=== PATIENT | male | born 1990 | race Asian ===

== ENCOUNTER 2022-03-23 19:04 | Emergency (ER) | payer OTHER, SELFPAY ==
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
[2022-03-23 19:37] VITALS: BP 123/85; PULSE 63; RESP 16; TEMP 36.6; O2SAT 99; BMI 32.1
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
[2022-03-23] MEDS: Ibuprofen 200 MG TABLET PO (21:49)
[2022-03-23] MEDS: oxyCODONE HCl Immed Release 5 MG TABLET PO (21:50)
== END 2022-03-23 23:39 | disposition home or self-care (01) ==
PROVIDERS: Emergency Provider Emergency Medicine
DX: M54.2 Cervicalgia (principal); T14.8XXA Other injury of unspecified body region, initial encounter; V43.52XA Car driver injured in collision with other type car in traffic accident, initial encounter; Y93.89 Activity, other specified; Y92.411 Interstate highway as the place of occurrence of the external cause; Y99.9 Unspecified external cause status
CPT/HCPCS: 70450; 72125; 99282; 99284